=== PATIENT | male | born 1995 | race Two or more races ===

== ENCOUNTER 2018-06-22 15:01 | Emergency (ER) | payer OTHER ==
[2018-06-22] MEDS ORDERED: MECLIZINE HCL 25 MG TAB PO ONE (15:17)
[2018-06-22] MEDS ORDERED: ONDANSETRON DISINTEGRATING 4 MG TAB PO ONE (15:17)
--- NOTE | 2018-06-22 16:17 | EDPHY ---
H & P Stated Complaint: R ear pressure, dizzy/nausea since last night Time Seen by Provider: 06/22/18 15:09 HPI/ROS: CHIEF COMPLAINT: "I am dizzy" HISTORY OF PRESENT ILLNESS: 22-year-old male generally healthy in the ER via private vehicle complaining acute onset of dizziness, described as better sitting still, worse moving his head to the left. It was worse earlier today and he vomited subsequently. Continues to experience mild nausea. No headache. No fever or chills. No recent illness. No history of head injury or neck injury or manipulation. No visual acuity changes. No gait instability. No slurred speech. No hearing loss. No tinnitus. No barotrauma. No otorrhea. PRIMARY CARE PROVIDER: REVIEW OF SYSTEMS: 10 systems reviewed and negative with the exception of the elements mentioned in the history of present illness PAST MEDICAL & SURGICAL HISTORY: No pertinent medical or surgical history SOCIAL HISTORY: Nonsmoker PHYSICAL EXAM (Prior to examination, patient consented to physical exam, hands were washed and my usual and customary physical exam procedures followed) 1) GENERAL: Well-developed, well-nourished, alert and oriented. Appears to be in no acute distress. 2) HEAD: Normocephalic, atraumatic 3) HEENT: Pupils equal, round, reactive to light bilaterally. Sclera anicteric. Nasopharynx, oropharynx, clear, no lesions. Moist Mucous membranes. No tonsillar enlargement or exudate. Ears bilaterally with normal tympanic membranes. No evidence of tympanic perforation. No evidence of otitis media otitis externa. 4) NECK: Full range of motion, no meningeal signs. 5) LUNGS: Clear auscultation bilaterally, no wheezes, no rhonchi, no retractions. 6) HEART: Regular rate and rhythm, no murmur, no heave, no gallop. 7) ABDOMEN: No guarding, no rebound, no focal tenderness, negative McBurney's, negative Carson's, negative Rovsing's, negative peritoneal sign, 8) MUSCULOSKELETAL: Moving all extremities, no focal areas of tenderness, no obvious trauma. No peripheral edema or discoloration. 9) BACK: No CVA tenderness, no midline vertebral tenderness, no fluctuance, no step-off, no obvious trauma, no visual or palpable abnormality. 10) SKIN: No rash, no petechiae. 11) Psychiatric: Patient is oriented X 3, there is no agitation. 12) NEURO: Awake, alert, and oriented to person, place and time. Answers questions appropriately. There were no obvious focal neurologic abnormalities. No cerebellar dysfunction. Cranial nerves 2 through to 12 intact. Normal steady gait. Upper and lower extremities bilaterally with strength 5 / 5, reflexes 2+. DIFFERENTIAL DIAGNOSIS: In no particular order including but not limited to benign positional vertigo, Meniere's disease, malignancy - Medical/Surgical History Hx Asthma: No Hx Chronic Respiratory Disease: No Hx Diabetes: No Hx Cardiac Disease: No Hx Renal Disease: No Hx Cirrhosis: No Hx Alcoholism: No Hx HIV/AIDS: No Hx Splenectomy or Spleen Trauma: No Other PMH: denies - Social History Smoking Status: Never smoked Constitutional: Initial Vital Signs Temperature (C) 36.7 C 06/22/18 15:06 Heart Rate 78 06/22/18 15:06 Respiratory Rate 16 06/22/18 15:06 Blood Pressure 130/61 H 06/22/18 15:06 O2 Sat (%) 97 06/22/18 15:06 O2 Delivery Mode Room Air Allergies/Adverse Reactions: No Known Allergies Allergy (Unverified 06/22/18 15:05) Home Medications: Medication Instructions Recorded Meclizine HCl [Meclizine HCl 25 mg 25 mg PO TID PRN #7 tab 06/22/18 (RX,OTC)] Ondansetron Odt [Zofran Odt] 4 mg PO Q4PRN PRN #10 tab 06/22/18 Pseudoephedrine HCl [Sudafed 12 120 mg PO BID #10 tab 06/22/18 Hour 120mg (*)] Medical Decision Making ED Course/Re-evaluation: 4:17 p.m.: Re-evaluation after oral meclizine and Zofran. Complete resolution of dizziness, complete resolution of nausea. He remains with a nonfocal exam. He would like to be discharged. At This time I do not think that imaging or diagnostic studies studies are indicated. Plan will be discharge home. He has no evidence of otitis media otitis externa. Right ear Effusion noted without signs of infection, recommended [id number] decongestants. My usual and customary ENT precautions and instructions provided. Care of patient under supervision of secondary supervising physician Dr Jer Cunha. Departure - Departure Disposition: Home, Routine, Self-Care Clinical Impression: Vertigo Condition: Good Instructions: Vertigo (ED) Additional Instructions: Seek medical attention if you develop return of symptoms, if you develop headache, hearing loss, visual problems or changes, problems walking or any other symptoms that concern you Referrals: Td Plasencia MD [Medical Doctor] - 1-2 days without fail Prescriptions: Meclizine HCl [Meclizine HCl 25 mg (RX,OTC)] 25 mg PO TID PRN #7 tab PRN Reason: Dizziness Ondansetron Odt [Zofran Odt] 4 mg PO Q4PRN PRN #10 tab PRN Reason: Nausea Pseudoephedrine HCl [Sudafed 12 Hour 120mg (*)] 120 mg PO BID #10 tab
[2018-06-22 16:27] VITALS: BP 128/78
== END 2018-06-22 16:26 | disposition home or self-care (01) ==
LOC: EDBD 15:01
DX: R42 Dizziness and giddiness (principal)